=== PATIENT | female | born 1950 | race Caucasian/White ===

== ENCOUNTER 2021-07-31 10:06 | Inpatient (IN) ==
[2021-07-31] MEDS ORDERED: ALBUTEROL/IPRATROPIUM 3 ML NEB RESP TX STA ×2 (12:53→14:51)
[2021-07-31] MEDS ORDERED: methylPREDNISolone SOD SUC 125 MG/2 ML VIAL IV STA (12:53)
[2021-07-31 13:43] LABS: Basophils % 0.2 % (0.0-0.8); Hematocrit 48.5 VOL% (35.7-47.0); Hemoglobin 15.8 GM/DL (12.0-16.0); Immature Granulocytes % 0.5 %; Immature Granulocytes Absolute 0.05 #; Lymphocytes % 18.1 % (21.3-54.2); Mean Corpuscular HGB Conc 32.6 GM/DL (32-36); Mean Corpuscular Volume 91.2 FL (87-102); Mean Platelet Volume 10.2 FL (9.6-12.0); Monocytes % 7.1 % (1.7-12.7); Neutrophils % 74.1 % (38.7-73.9); Platelet Count 227 T/CUMM (130-400); Red Blood Count 5.32 MC/CUMM (3.8-5.5); Red Cell Distribution Width 15.9 % (9.3-17.3); White Blood Count 10.8 T/CUMM (4-12)
[2021-07-31 14:03] LABS: Albumin 3.2 G/DL (3.4-5.0); Bilirubin,Total 0.4 MG/DL (0.20-1.00); Calcium 9.1 MG/DL (8.5-10.1); Potassium 4.5 MMOL/L (3.5-5.1); Total Protein 7.5 G/DL (6.4-8.2)
[2021-07-31] MEDS ORDERED: DEXTROSE 50% 25 GM/50 ML SYRINGE IV PRN (15:04)
[2021-07-31] MEDS ORDERED: GLUCAGON 1 MG VIAL IM PRN (15:04)
[2021-07-31] MEDS ORDERED: ACETAMINOPHEN 325 MG TABLET PO PRN (15:04)
[2021-07-31] MEDS ORDERED: ONDANSETRON 4 MG/2 ML VIAL IV PRN (15:04)
[2021-07-31] MEDS ORDERED: hydrALAZINE 20 MG/1 ML VIAL IV PRN (15:04)
[2021-07-31] MEDS ORDERED: FUROSEMIDE 40 MG/4 ML VIAL IV ONE (15:19)
[2021-07-31] MEDS ORDERED: cefTRIAXone 1,000 MG in SODIUM CHLORIDE 0.9% 100 ML IV SCH (16:00)
[2021-07-31 16:09] LABS: Thyroid Stimulating Hormone 2.06 uIU/ml (0.358-3.74)
[2021-07-31] MEDS ORDERED: AZITHROMYCIN INJ 500 MG in SODIUM CHLORIDE 0.9% 250 ML IV SCH (17:00)
[2021-07-31 17:12] LABS: Lymphocytes 12 % (20-55); Segmented Neutrophils 81 % (50-85); Total Cells Counted 100; Toxic Granulation 2+
[2021-07-31 17:13] LABS: Platelet Estimate Normal; Reactive Lymphocytes Few
[2021-07-31] MEDS: ALBUTEROL/IPRATROPIUM 3 ML NEB RESP TX SCH (20:25)
[2021-07-31] MEDS: BUDESONIDE 0.5 MG/2 ML NEB RESP TX SCH (20:34)
[2021-07-31] MEDS ORDERED: CARBIDOPA/LEVODOPA CR 25-100 MG TABLET PO SCH (21:00)
[2021-07-31] MEDS ORDERED: AMITRIPTYLINE 75 MG TABLET PO SCH (21:00)
[2021-07-31] MEDS ORDERED: ROSUVASTATIN 10 MG TABLET PO SCH (21:00)
[2021-07-31] MEDS: NEBIVOLOL 10 MG TABLET PO SCH (23:05)
[2021-07-31] MEDS: APIXABAN 5 MG TABLET PO SCH (23:07)
[2021-07-31] MEDS: methylPREDNISolone SOD SUC 40 MG/1 ML VIAL IV SCH (23:10)
[2021-08-01] MEDS: ALBUTEROL/IPRATROPIUM 3 ML NEB RESP TX SCH ×5 (02:58→14:53)
[2021-08-01 05:26] LABS: Basophils % 0.1 % (0.0-0.8); Hemoglobin 14.4 GM/DL (12.0-16.0); Immature Granulocytes % 0.6 %; Immature Granulocytes Absolute 0.04 #; Lymphocytes % 13.7 % (21.3-54.2); Mean Corpuscular Volume 90.9 FL (87-102); Mean Platelet Volume 10.5 FL (9.6-12.0); Neutrophils % 83.6 % (38.7-73.9); Platelet Count 204 T/CUMM (130-400); Red Blood Count 4.95 MC/CUMM (3.8-5.5)
[2021-08-01 05:52] LABS: Bilirubin,Total 0.5 MG/DL (0.20-1.00); Calcium 8.4 MG/DL (8.5-10.1); Osmolality,Calculated 284.7 MOS/KG (273-304); Risk Ratio 2.51; Total Protein 6.7 G/DL (6.4-8.2); VLDL Cholesterol 18.4 MG/DL
[2021-08-01] MEDS: methylPREDNISolone SOD SUC 40 MG/1 ML VIAL IV SCH ×2 (06:27→12:26)
[2021-08-01] MEDS ORDERED: DIGOXIN 0.125 MG TABLET PO SCH (09:00)
[2021-08-01] MEDS ORDERED: PANTOPRAZOLE 40 MG TABLET PO SCH (09:00)
[2021-08-01] MEDS ORDERED: DILTIAZEM CD 180 MG CAPSULE PO SCH (09:00)
[2021-08-01] MEDS: NEBIVOLOL 10 MG TABLET PO SCH (09:37)
[2021-08-01] MEDS: APIXABAN 5 MG TABLET PO SCH (09:38)
[2021-08-01] MEDS: BUDESONIDE 0.5 MG/2 ML NEB RESP TX SCH (10:55)
[2021-08-01 17:04] VITALS: BP 139/81
[2021-08-08 09:50] LABS: Resp Path Specimen Src NASOPHARYNGEAL SWAB
== END 2021-08-01 18:34 | disposition home health service (06) | DRG 202 ==
LOC: N.ED 10:06 → N.EDINP 15:04 → SUATTDRO 15:04 → N.EDINP 08-01 02:53 → N.TELEN 08-01 03:32
PROVIDERS: ADMIT Internal Medicine; ATTEND Internal Medicine